=== PATIENT | male | born 1935 | race African-American/Black ===

== ENCOUNTER 2017-02-09 16:29 | Outpatient (CLI) | payer MEDICARE ==
--- NOTE | 2017-02-09 18:07 | RAD ---
PA AND LATERAL VIEWS OF CHEST: 02/09/17 HISTORY: Community acquired pneumonia. FINDINGS: Comparison is made with exam of 09/15/06. There is continued elevation of the right hemidiaphragm. The heart size is stable. Mild chronic ellison ges are again noted. No confluent areas of consolidation or pneumothorax or pleural effusions are id entified. IMPRESSION: No acute process. POS: [facility]
== END 2017-02-09 16:30 | disposition home or self-care (01) ==
LOC: NAV RAD 16:29
PROVIDERS: ATTEND Family Medicine
DX: J18.9 Pneumonia, unspecified organism (principal)
CPT/HCPCS: 71020

== ENCOUNTER 2017-03-14 09:14 | Emergency (ER) | payer MEDICARE | END 2017-03-14 09:47 | disposition home or self-care (01) | LOC: NAV ERS 09:14 | DX: J30.9 Allergic rhinitis, unspecified (principal); I11.0 Hypertensive heart disease with heart failure; I50.9 Heart failure, unspecified | CPT/HCPCS: 99283 ==

== ENCOUNTER 2017-07-21 11:41 | Emergency (ER) | payer MEDICARE, OTHER ==
[2017-07-21] MEDS ORDERED: HYDROcodone/Acetaminophen 5/325 mg Tablet ONE (12:11)
--- NOTE | 2017-07-21 12:50 | RAD ---
THREE VIEWS CERVICAL SPINE: Technique: AP, lateral, and open mouth odontoid views. History: Neck pain. FINDINGS: Images demonstrate loss of the normal lordotic curvature of the cervical spine. There is disc space height loss with anterior osteophytes at the C4-5, C5-6, and C6-7 levels. Anterior osteophyte and di sc calcification also seen at the C2-3 level. Posterior osteophytes seen in the posterior aspect of the C3-4, C4-5 and C5-6 levels. IMPRESSION: Midcervical changes of spondylosis. No acute cervical spine fracture or bony lesions seen. POS: [facility]
== END 2017-07-21 13:50 | disposition home or self-care (01) ==
LOC: NAV ERS 11:41
DX: M47.812 Spondylosis without myelopathy or radiculopathy, cervical region (principal); E78.5 Hyperlipidemia, unspecified; I11.0 Hypertensive heart disease with heart failure; I50.9 Heart failure, unspecified; J30.2 Other seasonal allergic rhinitis; Z79.899 Other long term (current) drug therapy
CPT/HCPCS: 72040

== ENCOUNTER 2018-04-18 23:53 | Emergency (ER) | payer MEDICARE, OTHER ==
[2018-04-19] MEDS ORDERED: diphenhydrAMINE 25 MG CAP ONE (00:14)
[2018-04-19] MEDS ORDERED: Metoclopramide HCl 10 MG TAB ONE (00:14)
[2018-04-19] MEDS ORDERED: predniSONE 20 MG TAB ONE (00:15)
[2018-04-19 00:53] LABS: #Basophils 0.1 thou/uL (0.0-0.2); #Eosinphils 0.2 thou/uL (0.0-0.7); #Monocytes 0.6 thou/uL (0.11-0.59); #Neutrophils 2.9 thou/uL (1.40-6.50); %Eosinophils 3.1 % (0.0-10.0); %Lymphocytes 35.8 % (21.0-51.0); %Monocytes 10.1 % (0.0-10.0); Hemoglobin 12.5 g/dL (14.0-18.0); Mean Corpuscular HGB CONC 31.1 g/dL (32.0-36.0); Mean Corpuscular Hemoglobin 28.6 pg (27.0-31.0); Mean Corpuscular Volume 91.8 fL (78.0-98.0); Mean Platelet Volume 7.7 fL (7.4-10.4); Platelet Count 148 thou/uL (130-400); RBC Distribution Width 12.7 % (11.5-14.5); Red Blood Cell (RBC) Count 4.39 mill/uL (4.70-6.10); White Blood Cell (WBC) Count 5.7 thou/uL (4.8-10.8)
[2018-04-19 01:01] LABS: ALT (SGPT) 19 U/L (8-55); AST (SGOT) 23 U/L (5-34); Alkaline Phosphatase 60 U/L (40-150); Anion Gap 13 mmol/L (10-20); BUN (Urea Nitrogen) 17 mg/dL (8.4-25.7); Bilirubin, Total 0.3 mg/dL (0.2-1.2); Calc. Creatinine Clearance 0 mL/min (70-130); Calcium 9.2 mg/dL (7.8-10.44); Carbon Dioxide 26 mmol/L (23-31); Chloride 107 mmol/L (98-107); Estimated GFR-MDRD Greater than 90; Globulin 2.6 g/dL (2.4-3.5); Glucose 99 mg/dL (83-110); Potassium 3.9 mmol/L (3.5-5.1); Protein, Total 6.6 g/dL (5.8-8.1); Sodium 142 mmol/L (136-145)
[2018-04-19] MEDS ORDERED: Acetaminophen 325 MG TAB ONE (01:20)
--- NOTE | 2018-04-19 10:36 | CT ---
PRELIMINARY REPORT/[facility]/EMERGENTY AFTER-HOURS PROCEDURE CT Head Without Intravenous Contrast CLINICAL HISTORY: 83 years old, male; Pain; Headache; Other: Throbbing; Patient HX: C/O hbp and headache, pain started earlier this evening. TECHNIQUE: Axial computed tomography images of the head/brain without intravenous contrast. All CT scans at this facility use at least one of these dose optimization techniques: automated exposure control; mA and/ or kV adjustment per patient size (includes targeted exams where dose is matched to clinical indicati on); or iterative reconstruction. COMPARISON: No relevant prior studies available. FINDINGS: Brain: Volume loss and chronic small vessel ischemic change. No brain edema. No intracranial hemorrha ge. Ventricles: Normal. No ventriculomegaly. Bones/joints: Normal. No acute fracture. Sinuses: Normal as visualized. No acute sinusitis. Mastoid air cells: Normal as visualized. No mastoid effusion. Soft tissues: Normal. IMPRESSION: No acute brain findings. Thank you for allowing us to participate in the care of your patient. Dictated and Authenticated by: Miller Trent MD 04/19/2018 1:11 AM Central Time ([place] & [place]) FINAL REPORT CT BRAIN WITHOUT CONTRAST: I agree with the preliminary report given by Dr. Miller Trent of [facility]. POS: [facility]
== END 2018-04-19 01:25 | disposition home or self-care (01) ==
LOC: NAV ERS 23:53
DX: I11.0 Hypertensive heart disease with heart failure (principal); I50.9 Heart failure, unspecified; E78.5 Hyperlipidemia, unspecified; Z79.899 Other long term (current) drug therapy
CPT/HCPCS: 70450; 80053; 85025; 93005; J7506

== ENCOUNTER 2018-08-24 01:55 | Emergency (ER) | payer MEDICARE | END 2018-08-24 02:20 | disposition home or self-care (01) | LOC: NAV ERS 01:55 | DX: I11.0 Hypertensive heart disease with heart failure (principal); I50.9 Heart failure, unspecified; E78.5 Hyperlipidemia, unspecified | CPT/HCPCS: 93005 ==

== ENCOUNTER 2019-08-09 09:36 | Emergency (ER) | payer MEDICARE ==
[2019-08-09 10:07] LABS: Bilirubin Small (Negative); Blood, Urine Moderate (Negative); Clarity Clear (Clear); Glucose, Urine (Dipstick) Negative (Negative); Leukocyte Negative (Negative); Nitrite Negative (Negative); Protein, Urine (Dipstick) 100 mg/dL (Neg-Trace)
[2019-08-09 10:15] LABS: Bacteria/HPF None Seen HPF (None Seen); Squamous Epithelial 0-3 HPF (0-3); WBC/HPF 0-3 HPF (0-3)
[2019-08-09 10:16] LABS: Mucous/LPF 4+ LPF (<2+)
[2019-08-09 10:48] LABS: ALT (SGPT) 64 U/L (8-55); AST (SGOT) 62 U/L (5-34); Albumin 3.9 g/dL (3.4-4.8); Alkaline Phosphatase 63 U/L (40-110); Anion Gap 16 mmol/L (10-20); BUN (Urea Nitrogen) 12 mg/dL (8.4-25.7); Bilirubin, Total 0.5 mg/dL (0.2-1.2); Calc. Creatinine Clearance 0 mL/min (70-130); Calcium 9.2 mg/dL (7.8-10.44); Carbon Dioxide 28 mmol/L (23-31); Chloride 100 mmol/L (98-107); Estimated GFR-MDRD Greater than 90; Globulin 3.3 g/dL (2.4-3.5); Glucose 132 mg/dL (83-110); Potassium 3.7 mmol/L (3.5-5.1); Protein, Total 7.2 g/dL (5.8-8.1); Sodium 140 mmol/L (136-145)
--- NOTE | 2019-08-09 11:02 | RAD ---
XR Chest Pa Lat STANDARD HISTORY: Cough COMPARISON: 06/07/2017 FINDINGS: There is continued elevation of the right hemidiaphragm size stable. This might prominence of pulmonary vascularity. No lobar consolidation, pneumothoraces or large effusions are seen. IMPRESSION: No radiographic evidence of acute cardiopulmonary process.
[2019-08-09 11:39] LABS: Hemoglobin 12.5 g/dL (14.0-18.0); Mean Corpuscular HGB CONC 31.7 g/dL (32.0-36.0); Mean Corpuscular Hemoglobin 29.7 pg (27.0-31.0); Mean Corpuscular Volume 93.8 fL (78.0-98.0); Mean Platelet Volume 7.7 fL (7.4-10.4); Platelet Count 157 thou/uL (130-400); RBC Distribution Width 12.2 % (11.5-14.5); White Blood Cell (WBC) Count 7.4 thou/uL (4.8-10.8)
[2019-08-09 11:57] LABS: Band 5 % (5-11); Lymphocytes 15 % (21-51); MDiff Complete? YES; Monocytes 14 % (0-10); Neutrophil 65 % (42-75); Platelet Morphology Comment Appears Adequate; RBC Morphology Normal; Reactive Lymphocytes 1 % (0-10)
[2019-08-09] MEDS ORDERED: Azithromycin 250 MG TAB ONE ×2 (12:03→12:05)
[2019-08-09] MEDS ORDERED: predniSONE 20 MG TAB ONE (12:03)
== END 2019-08-09 12:40 | disposition home or self-care (01) ==
LOC: NAV ERS 09:36
DX: J44.1 Chronic obstructive pulmonary disease with (acute) exacerbation (principal); R31.29 Other microscopic hematuria; R30.0 Dysuria; R94.5 Abnormal results of liver function studies; I11.0 Hypertensive heart disease with heart failure; I50.9 Heart failure, unspecified; E78.5 Hyperlipidemia, unspecified; E78.00 Pure hypercholesterolemia, unspecified; Z87.891 Personal history of nicotine dependence
CPT/HCPCS: 71046; 80053; 81003; 81015; 83605; 85025; 87086; 94760; J7512